=== PATIENT | female | born 1985 | race Caucasian/White ===

== ENCOUNTER 2020-02-22 06:44 | Outpatient (NON) | payer OTHER, SELFPAY ==
[2020-02-23 02:43] LABS: SARS-CoV-2 RNA PCR Negative
== END 2020-02-22 06:45 ==
PROVIDERS: PCP Family Medicine; Visit Provider Nurse Practitioner Family
DX: R05 Cough (principal); Z20.828 Contact with and (suspected) exposure to other viral communicable diseases
CPT/HCPCS: 87635; C9803; U0003

== ENCOUNTER → 2021-01-23 10:54 | Outpatient (CLI) | payer OTHER, SELFPAY ==
--- NOTE | ~2021-01-23 | US_ITS ---
EXAMINATION: US venous doppler [facility] DATE: 01/23/2021 11:38 INDICATION: Left upper limb pain TECHNIQUE: Grayscale images without and with compression and Doppler images of the left upper extremi ty veins were obtained. COMPARISON: None. FINDINGS: The left internal jugular vein, subclavian vein, axillary vein, brachial vein, basilic vein, cephalic vein, radial vein, and ulnar vein are patent. IMPRESSION: 1. Patent left upper extremity veins. No evidence of venous thrombosis. Reviewed, dictated and finalized at location A.
--- NOTE | ~2021-01-23 | XR_ITS ---
EXAMINATION: XR shoulder LT min 2V DATE: 01/23/2021 11:46 INDICATION: Left shoulder joint pain TECHNIQUE: AP internally and externally rotated, AP oblique externally rotated and axillary views of the left shoulder were obtained. COMPARISON: None FINDINGS: Normal alignment. No fracture. Glenohumeral joint is normal. Acromioclavicular joint is normal. Soft tissues are unremarkable. IMPRESSION: Negative left shoulder radiographs. Reviewed, dictated and finalized at location A.
== END ==
PROVIDERS: PCP Physician Assistant; Visit Provider Physician Assistant
DX: M25.512 Pain in left shoulder (principal); M79.602 Pain in left arm
CPT/HCPCS: 73030; 93971

== ENCOUNTER → 2022-07-29 15:26 | Outpatient (CLI) | payer OTHER, SELFPAY ==
--- NOTE | ~2022-07-29 | XR_ITS ---
XR hip LT 2V w AP pelvis 07/29/2022 15:46 INDICATION: Left hip pain PROCEDURE: AP pelvis and 2 views left hip COMPARISON: No prior studies for comparison. FINDINGS: Fracture, dislocation or subluxation is not identified. Pelvic rings are intact. The soft t issues appear within normal limits. No foreign bodies are identified. IMPRESSION: 1: NO ACUTE BONE OR JOINT ABNORMALITY IDENTIFIED. Reviewed, dictated and finalized at location B.
--- NOTE | ~2022-07-29 | US_ITS ---
US soft tissue groin LT 07/29/2022 15:44 Indication: Left lower quadrant pain for 6 months Procedure: High-resolution ultrasound of the left groin Comparison: No prior studies for comparison. Findings: There are multiple left inguinal lymph nodes all containing normal fatty hilum, largest tiffanie suring 9 mm. No suspicious masses are identified. No abnormal fluid collections. Impression: 1: Normal left inguinal lymph nodes. Reviewed, dictated and finalized at location B. Impression: 1: Normal left inguinal lymph nodes.
== END ==
PROVIDERS: PCP Physician Assistant; Visit Provider Physician Assistant
DX: R10.32 Left lower quadrant pain (principal); M25.552 Pain in left hip
CPT/HCPCS: 73502; 76882

== ENCOUNTER 2023-12-28 15:10 | Outpatient (CLI) | payer OTHER, SELFPAY ==
--- NOTE | ~2023-12-28 | US_ITS ---
EXAMINATION: US soft tissue head and neck DATE: 12/28/2023 15:32 INDICATION: Left neck enlarged lymph nodes. TECHNIQUE: Multiple grayscale and Doppler ultrasound images of the head and neck were obtained. COMPARISON: None FINDINGS: The left submandibular gland is normal. There is no abnormal lymphadenopathy. IMPRESSION: 1. No abnormal mass or lymphadenopathy in the patient's area of concern in left neck. Reviewed, dictated and finalized at location A.
== END 2023-12-28 15:11 | disposition home or self-care (01) ==
LOC: GOSHIMG 15:10
PROVIDERS: PCP Physician Assistant; Visit Provider Physician Assistant
DX: R59.0 Localized enlarged lymph nodes (principal)
CPT/HCPCS: 76536

== ENCOUNTER 2024-01-18 15:41 | Outpatient (CLI) | payer OTHER, SELFPAY ==
--- NOTE | ~2024-01-18 | CT_ITS ---
EXAMINATION: CT soft tissue neck w con DATE: 01/18/2024 16:06 INDICATION: Localized enlarged lymph nodes. TECHNIQUE: Computed tomography (CT) of the neck was performed with 75 mL Omnipaque-350 intravenous co ntrast. Automated exposure control and iterative reconstruction technique were employed. The dose-deepak gth product was 379.89 mGy-cm. COMPARISON: Ultrasound 12/28/2023 FINDINGS: There are no pathologically enlarged lymph nodes. Partially visualized are breast implants. There is 0% stenosis of the proximal internal carotid arteries relative to normal distal artery lume n diameters. There is a 2 mm sialolith in left floor of mouth. There is mild mucosal thickening in th e paranasal sinuses. The mastoid air cells are normal. IMPRESSION: 1. No lymphadenopathy. 2. 2 mm sialolith in the left floor of mouth. Reviewed, dictated and finalized at location A.
== END 2024-01-18 15:42 | disposition home or self-care (01) ==
PROVIDERS: PCP Physician Assistant; Visit Provider Physician Assistant
DX: K11.5 Sialolithiasis (principal)
CPT/HCPCS: 70491; Q9967